=== PATIENT | female | born 1940 | race Caucasian/White ===

== ENCOUNTER 2020-01-04 08:46 | Observation (INO) | payer MEDICARE, OTHER ==
[~2020-01-04] VITALS: Ht 170.2 cm; Wt 85.5 kg
[~2020-01-04 08:46] MED LIST: ATOR40TA PO; ATOR40TA78 PO; ERTA1VIA IV; INSU100I18 SQ-INSULIN; INSU100V8 SQ; LEVO500T47 PO; LIRA0.6P SQ; LISI2.5T PO; METF1000 PO; METF10002 PO
[2020-01-04] MEDS ORDERED: SODIUM CHLORIDE FLUSH 10ML SYR IVF ONE (09:00)
[2020-01-04] MEDS ORDERED: ONDANSETRON 2MG/ML, 2ML IVPush ONE (09:00)
--- NOTE | 2020-01-04 09:23 | NUR ---
DARIUSZ. REPORT RECEIVED FROM EMS. PT C/O EPIGASTRIC PAIN WITH N/V SINCE 6AM. ALL SYMPTOMS RESOLVED NOW. PT'S AOX4. RESPS EVEN AND UNLABORED. PT STATES"I HAD LEFT SIDED CP ABOUT 1 WEEK AGO." PT DENIES CP/D/BARBOZA AT THIS TIME. BP/SPO2 MONITORS IN PLACE. CALL LIGHT WITHIN REACH. PA AT BEDSIDE TO EVALUATE AT THIS TIME.
[2020-01-04 09:24] LABS: BASOPHILS % (AUTO) 0 % (0-1); EOSINOPHILS # (AUTO) 0.04 x10^3/uL (0-0.4); EOSINOPHILS % (AUTO) 0 % (1-7); LYMPHOCYTES # (AUTO) 1.82 x10^3/uL (1-3.4); LYMPHOCYTES % (AUTO) 17 % (22-44); MD NO; MEAN CORPUSCULAR HGB CONC 31.5 g/dL (32.4-35.8); MEAN CORPUSCULAR VOLUME 88.7 fL (80-100); MEAN PLATELET VOLUME 7.8 fL (7.4-10.4); MONOCYTES # (AUTO) 0.46 x10^3/uL (0.2-0.8); MONOCYTES % (AUTO) 4 % (2-9); NEUTROPHILS % (AUTO) 78 % (42-75); PLATELET COUNT 260 x10^3/uL (130-400); RED BLOOD COUNT 4.22 x10^6/uL (3.82-5.3); RED CELL DISTRIBUTION WIDTH 17.1 % (9.6-15.2)
--- NOTE | 2020-01-04 09:27 | NUR ---
PT AMB TO BR WITH STEADY GAIT. URINE CUP GIVEN.
--- NOTE | 2020-01-04 09:27 | NUR ---
PT REFUSED ZOFRAN AT THIS TIME. PT STATES "ALL OF MY SYMPTOMS RESOLVED."
[2020-01-04 09:38] LABS: ALBUMIN 3.5 g/dL (3.4-5.0); ANION GAP 10 mmol/L (5-15); CHLORIDE 111 mmol/L (98-107)
[2020-01-04 09:41] LABS: ALANINE AMINOTRANSFERASE 19 U/L (12-78); ALKALINE PHOSPHATASE 71 U/L (45-117); BILIRUBIN,TOTAL 0.9 mg/dL (0.2-1.0); TOTAL PROTEIN 6.8 g/dL (6.4-8.2)
[2020-01-04 09:47] LABS: MICROSCOPIC NOT IND
[2020-01-04] MEDS ORDERED: ASPIRIN 81 MG TABLET CHEW PO ONE (10:00)
[2020-01-04 10:07] LABS: CULTURE INDICATED? NO
[2020-01-04] MEDS ORDERED: ASPIRIN 81 MG TABLET CHEW ONE (10:07)
--- NOTE | 2020-01-04 10:08 | NUR ---
US AT BEDSIDE AT THIS TIME.
--- NOTE | 2020-01-04 10:09 | NUR ---
PT MEDICATED PER EMAR. PT TOLERATED WELL.
[2020-01-04 10:26] LABS: TROPONIN I < 0.015 ng/mL (0.000-0.045)
--- NOTE | 2020-01-04 11:08 | NUR ---
ekg done at bedside by emt.
[2020-01-04] MEDS ORDERED: ACET650S21 PO (11:13)
--- NOTE | 2020-01-04 11:31 | NUR ---
PIV EST WITH NO COMPLICATIONS. PT TOLERATED WELL.
--- NOTE | 2020-01-04 12:02 | NUR ---
BREAK RN: PT RTD FROM [facility]. AMBULATED TO BATHROOM UPRIGHT STEADY GAIT. VOIDED AND RTD TO ROOM W/O INCIDENT. VSS AND PT DENIES PAIN. ALL TESTS RESULTED CHART UP FOR RECHECK AND PT AWARE. CALL LIGHT W/I REACH
--- NOTE | 2020-01-04 13:32 | NUR ---
report given to david armstrong. all questions answered.
--- NOTE | 2020-01-04 13:33 | NUR ---
PT HAS HX OF ESBL. YAZ RN NOTIFIED.
[2020-01-04] MEDS ORDERED: morphine SULFATE/PF 0.5 MG/ML, 10ML IV PRN (14:00)
[2020-01-04] MEDS ORDERED: ENOXAPARIN 40 MG/0.4 ML SQ SCH (14:00)
[2020-01-04] MEDS ORDERED: ONDANSETRON 4 MG TABLET PO PRN (14:00)
[2020-01-04] MEDS ORDERED: ACETAMINOPHEN 500 MG TABLET PO PRN (14:00)
[2020-01-04] MEDS ORDERED: ONDANSETRON 2MG/ML, 2ML IVPush PRN (14:00)
[2020-01-04 14:39] VITALS: BP 133/82
[2020-01-04] MEDS: INSULIN LISPRO 100 UNITS/ML, PEN SQ-INSULIN SCH ×2 (16:39→21:46)
[2020-01-04 16:44] LABS: TROPONIN I < 0.015 ng/mL (0.000-0.045)
[2020-01-04 20:30] VITALS: BP 124/77
[2020-01-04] MEDS ORDERED: ATORVASTATIN 40 MG TABLET PO SCH (21:00)
[2020-01-04 21:41] LABS: TROPONIN I < 0.015 ng/mL (0.000-0.045)
[2020-01-05 02:30] VITALS: BP 115/69
[2020-01-05 05:25] LABS: BASOPHILS # (AUTO) 0.03 x10^3/uL (0-0.1); BASOPHILS % (AUTO) 1 % (0-1); EOSINOPHILS # (AUTO) 0.18 x10^3/uL (0-0.4); EOSINOPHILS % (AUTO) 3 % (1-7); LYMPHOCYTES # (AUTO) 2.88 x10^3/uL (1-3.4); LYMPHOCYTES % (AUTO) 41 % (22-44); MD NO; MEAN CORPUSCULAR HEMOGLOBIN 28.2 pg (27.0-34.8); MEAN CORPUSCULAR HGB CONC 32.3 g/dL (32.4-35.8); MEAN CORPUSCULAR VOLUME 87.6 fL (80-100); MEAN PLATELET VOLUME 8.1 fL (7.4-10.4); MONOCYTES # (AUTO) 0.86 x10^3/uL (0.2-0.8); MONOCYTES % (AUTO) 12 % (2-9); NEUTROPHILS # (AUTO) 3.16 x10^3/uL (1.8-6.8); NEUTROPHILS % (AUTO) 44 % (42-75); PLATELET COUNT 290 x10^3/uL (130-400); RED CELL DISTRIBUTION WIDTH 17.3 % (9.6-15.2)
[2020-01-05 05:26] LABS: CHLORIDE 109 mmol/L (98-107)
[2020-01-05 05:36] LABS: ALANINE AMINOTRANSFERASE 17 U/L (12-78); ALBUMIN 3.1 g/dL (3.4-5.0); ALKALINE PHOSPHATASE 62 U/L (45-117); ANION GAP 7 mmol/L (5-15); BILIRUBIN,TOTAL 0.7 mg/dL (0.2-1.0); CALCIUM 8.7 mg/dL (8.5-10.1); CHOL/HDL RATIO 2.5; CHOLESTEROL, TOTAL 119 mg/dL (140-239); CREATININE 1.02 mg/dL (0.55-1.02); HDL CHOL % 40 % (28-40); HDL CHOLESTEROL (DIRECT) 48 mg/dL (40-60); LDL CHOLESTEROL,CALCULATED 53 mg/dL (54-169); LDL/HDL RATIO 1.1 (0.5-3.0); TRIGLYCERIDES 91 mg/dL (50-200); VLDL CHOLESTEROL 18 mg/dL (0-25)
[2020-01-05] MEDS ORDERED: ASPIRIN 81 MG TABLET EC PO SCH (06:00)
[2020-01-05 08:25] VITALS: BP 98/62
[2020-01-05] MEDS ORDERED: TEMPLATE NON-FORMULARY MED. (Liraglutide (Victoza 2-Pak) 1.8 MG) SQ SCH (09:00)
[2020-01-05] MEDS ORDERED: INSULIN GLARGINE 100 UNITS/ML, PEN SQ-INSULIN SCH (09:00)
[2020-01-05] MEDS: INSULIN LISPRO 100 UNITS/ML, PEN SQ-INSULIN SCH ×2 (09:29→11:00)
== END 2020-01-05 11:38 | disposition home or self-care (01) ==
LOC: ED 11:09 → INTOOBSV 12:39 → EDIP 12:39 → 5SO 14:30
PROVIDERS: ADMIT Hospitalist; ATTEND Family Medicine
DX: K80.20 Calculus of gallbladder without cholecystitis without obstruction (principal); I10 Essential (primary) hypertension; E11.9 Type 2 diabetes mellitus without complications; E78.5 Hyperlipidemia, unspecified; R11.2 Nausea with vomiting, unspecified; M19.042 Primary osteoarthritis, left hand; M19.041 Primary osteoarthritis, right hand; M17.0 Bilateral primary osteoarthritis of knee; Z87.891 Personal history of nicotine dependence; Z79.899 Other long term (current) drug therapy; Z87.440 Personal history of urinary (tract) infections; Z90.710 Acquired absence of both cervix and uterus
CPT/HCPCS: 36415; 71046; 76700; 80053; 80061; 81003; 82962; 83036; 83690; 84484; 85025; 93005; 93017; 96372; 99285; G0378; J1650; J1815

== ENCOUNTER 2020-01-11 21:45 | Emergency (ER) | payer OTHER ==
[~2020-01-11 21:45] MED LIST changes: +ACET650S21 PO
[2020-01-11 23:06] LABS: BASOPHILS # (AUTO) 0.04 x10^3/uL (0-0.1); BASOPHILS % (AUTO) 0 % (0-1); EOSINOPHILS % (AUTO) 2 % (1-7); LYMPHOCYTES # (AUTO) 2.45 x10^3/uL (1-3.4); LYMPHOCYTES % (AUTO) 27 % (22-44); MD NO; MEAN CORPUSCULAR HEMOGLOBIN 28.7 pg (27.0-34.8); MEAN CORPUSCULAR HGB CONC 32.8 g/dL (32.4-35.8); MEAN CORPUSCULAR VOLUME 87.5 fL (80-100); MEAN PLATELET VOLUME 8.1 fL (7.4-10.4); MONOCYTES # (AUTO) 0.88 x10^3/uL (0.2-0.8); MONOCYTES % (AUTO) 10 % (2-9); NEUTROPHILS # (AUTO) 5.57 x10^3/uL (1.8-6.8); NEUTROPHILS % (AUTO) 61 % (42-75); PLATELET COUNT 319 x10^3/uL (130-400); RED CELL DISTRIBUTION WIDTH 17.2 % (9.6-15.2)
[2020-01-11 23:16] VITALS: BP 148/66
[2020-01-11 23:16] LABS: ALANINE AMINOTRANSFERASE 41 U/L (12-78); ALBUMIN 3.2 g/dL (3.4-5.0); ANION GAP 7 mmol/L (5-15); CALCIUM 8.4 mg/dL (8.5-10.1); CHLORIDE 106 mmol/L (98-107); CREATININE 1.28 mg/dL (0.55-1.02)
[2020-01-11 23:20] LABS: ALKALINE PHOSPHATASE 82 U/L (45-117); BILIRUBIN,TOTAL 0.4 mg/dL (0.2-1.0); TOTAL PROTEIN 6.4 g/dL (6.4-8.2); TROPONIN I < 0.015 ng/mL (0.000-0.045)
== END 2020-01-12 00:02 | disposition home or self-care (01) ==
LOC: ED 22:45
DX: R10.13 Epigastric pain (principal); R11.2 Nausea with vomiting, unspecified; R00.0 Tachycardia, unspecified; I10 Essential (primary) hypertension; E78.5 Hyperlipidemia, unspecified; E11.65 Type 2 diabetes mellitus with hyperglycemia; Z90.710 Acquired absence of both cervix and uterus
CPT/HCPCS: 36415; 80053; 83690; 84484; 85025; 93005; 99283